=== PATIENT | male | born 1985 | race Two or more races ===

== ENCOUNTER 2016-07-13 07:06 | Emergency (ER) | payer SELFPAY ==
[~2016-07-13] VITALS: Ht 180.3 cm; Wt 101.2 kg
[2016-07-13] MEDS ORDERED: KETOROLAC 30 MG/1 ML IM ONE (08:00)
[2016-07-13] MEDS ORDERED: KETOROLAC 30 MG/1 ML ONE (08:07)
[2016-07-13 08:29] VITALS: BP 121/65
== END 2016-07-13 08:49 | disposition home or self-care (01) ==
LOC: ED 07:43
DX: S20.212A Contusion of left front wall of thorax, initial encounter (principal); X58.XXXA Exposure to other specified factors, initial encounter; Y93.89 Activity, other specified; Y99.8 Other external cause status; Y92.89 Other specified places as the place of occurrence of the external cause
CPT/HCPCS: 71101; 96372; 99284; J1885